=== PATIENT | male | born 1975 | race Two or more races ===

== ENCOUNTER 2020-02-22 12:46 | Inpatient (IN) | payer SELFPAY ==
[~2020-02-22] VITALS: Ht 185.4 cm; Wt 164.9 kg
[2020-02-22 13:31] LABS: Basophils # (auto) 0.1 10 ^3/uL (0-0.2); Basophils % (auto) 0.4 % (0.0-2.0); Eosinophils # (auto) 0.3 10 ^3/uL (0-0.8); Eosinophils % (auto) 2.5 % (0.0-7.0); Hematocrit 32.9 % (41.0-53.0); Hemoglobin 10.7 g/dL (13.5-17.5); Lymphocytes # (auto) 0.8 10 ^3/uL (0.4-5.4); Mean Corpuscular Hemoglobin 28.1 pg (28.0-32.0); Mean Corpuscular Hgb Conc. 32.5 g/dL (32.0-36.0); Mean Corpuscular Volume 86.4 fL (80.0-100.0); Monocytes # (auto) 0.6 10 ^3/uL (0-1.3); Monocytes % (auto) 5.3 % (0.0-12.0); Neutrophils # (auto) 9.9 10 ^3/uL (1.6-8.6); Neutrophils % (auto) 84.8 % (37.0-80.0); Platelet Count (auto) 282 10^3/uL (140-450); Red Blood Cells 3.81 10^6/uL (4.5-5.90); White Blood Cell 11.7 10^3/uL (4.4-10.8)
[2020-02-22 14:00] LABS: INR 0.97 (0.9-1.15); Partial Thromboplastin Time 29.9 sec (23.0-31.2)
[2020-02-22 14:07] LABS: Albumin 3.3 g/dL (3.4-5.0); Calcium 7.3 mg/dL (8.5-10.1); Potassium 4.3 mmol/L (3.5-5.1)
[2020-02-22 14:13] LABS: BUN/Creatinine Ratio 10.8; Bilirubin, Total 0.8 mg/dL (0.2-1.0); Total Protein 7.8 g/dL (6.4-8.2)
[2020-02-22] MEDS ORDERED: hydrALAZINE HCL 20 MG/ML VL IV PRN (16:30)
[2020-02-22] MEDS ORDERED: MORPHINE SULF INJ 2 MG/ML SYRINGE 1ML IV PRN (16:30)
[2020-02-22] MEDS ORDERED: NITROGLYCERIN 0.4 MG SL TAB SL PRN (16:30)
[2020-02-22 17:07] LABS: Sodium Urine 54 mmol/L (40-220)
[2020-02-22 17:10] LABS: Creatinine, Urine 92 mg/dL (30.0-125.0)
[2020-02-22 17:16] LABS: Urine Bacteria FEW /hpf (None Seen); Urine Blood 1+ /uL (Negative); Urine Mucus FEW (None Seen); Urine Specific Gravity 1.014 (1.001-1.035); Urine WBC 2 /hpf (0 - 3)
[2020-02-22 17:20] LABS: Phosphorus 4.3 mg/dL (2.5-4.90)
[2020-02-22 17:30] LABS: CRP High Sensitivity 1.68 mg/dL (< 0.3)
--- NOTE | 2020-02-22 17:54 | NUR ---
Telemetry admit from ER RENATA KEMP admitted to Telemetry unit after SBAR received. Patient oriented to Yesenia Barraza, primary RN, unit, room, bed, and unit policies regarding patient care and visiting hours. Patient now on continuous telemetry monitoring, tele box # 9 and telemetry reading on arrival to unit is . weighed by bedscale and encouraged to call if they need something. All questions and concerns addressed, patient verbalized understanding. Note:
--- NOTE | 2020-02-22 18:14 | NUR ---
BLOOD PRESSURE SPOKE WITH YASSINE GAMINO FOR ORDERS REGARDING BLOOD PRESSURE.
[2020-02-22] MEDS ORDERED: CARV25TA55 PO (18:22)
[2020-02-22] MEDS ORDERED: LISI40TA11 PO (18:22)
[2020-02-22] MEDS ORDERED: AMLO10TA13 PO (18:22)
[2020-02-22] MEDS: FUROSEMIDE 40 MG/4 ML VIAL IV SCH (18:39)
[2020-02-22] MEDS: LABETALOL HCL 5 MG/ML 4ML SYRINGE IV PRN (18:40)
[2020-02-22 18:43] VITALS: BP 172/107
--- NOTE | 2020-02-22 19:30 | NUR ---
Opening Shift Note Assumed care of patient, awake and alert. No S/S of distress/SOB or pain. Patient is a Latvian speaker only. Instructed on POC and to call for assist PRN, will continue to monitor for changes Q1hr and PRN.
[2020-02-22 22:00] VITALS: BP 152/89
[2020-02-22] MEDS: CARVEDILOL 3.125 MG TAB PO SCH (22:00)
[2020-02-23 05:00] VITALS: BP_SYST 147; BP_SYST 150; BP_DIAS 100; BP_DIAS 91
--- NOTE | 2020-02-23 05:00 | NUR ---
Endorsed care and report given to Juan MERCER. No signs of distress after transferring patient to other unit.
[2020-02-23] MEDS: FUROSEMIDE 40 MG/4 ML VIAL IV SCH ×2 (05:08→18:42)
--- NOTE | 2020-02-23 05:10 | NUR ---
Opening Shift Note Assumed care of patient from Gordy RN, patient awake and alert. Oxygen saturation 93% on room air. Bed locked in lowest position, side rails up X2, call light within reach. No S/S of distress/SOB or pain. Instructed on POC and to call for assist PRN, will continue to monitor for changes Q1hr and PRN.
--- NOTE | 2020-02-23 05:40 | NUR ---
Tele box Telemetry box #9 sent off to icu, received tele box #40
--- NOTE | 2020-02-23 07:15 | NUR ---
Closing note Care endorsed to Kevin MRECER. Patient resting in bed locked in lowest position, side rails up X2, call light within reach. No signs of distress or SOB.
--- NOTE | 2020-02-23 07:30 | NUR ---
opening note assumed care of patient from NOC SYLVIE Martinez. Patient is AOx4 no s/s of distress or SOB noted. Bed is in lowest locked position, side rails up x2 and call light within reach. Updated patient on plan of care and patient verbalized understanding. Will continue to monitor q1hr and PRN.
[2020-02-23 08:04] LABS: Basophils # (auto) 0.1 10 ^3/uL (0-0.2); Basophils % (auto) 0.6 % (0.0-2.0); Eosinophils # (auto) 0.4 10 ^3/uL (0-0.8); Eosinophils % (auto) 3.3 % (0.0-7.0); Hematocrit 29.3 % (41.0-53.0); Hemoglobin 9.9 g/dL (13.5-17.5); Lymphocytes # (auto) 0.9 10 ^3/uL (0.4-5.4); Lymphocytes % (auto) 8.3 % (10.0-50.0); Mean Corpuscular Hgb Conc. 33.7 g/dL (32.0-36.0); Monocytes # (auto) 0.7 10 ^3/uL (0-1.3); Monocytes % (auto) 6.2 % (0.0-12.0); Neutrophils # (auto) 8.6 10 ^3/uL (1.6-8.6); Neutrophils % (auto) 81.6 % (37.0-80.0); Platelet Count (auto) 238 10^3/uL (140-450); Red Cell Distribution Width 15.5 % (11.8-14.3); White Blood Cell 10.6 10^3/uL (4.4-10.8)
[2020-02-23 08:25] LABS: Calcium 7.3 mg/dL (8.5-10.1)
[2020-02-23 08:28] LABS: BUN/Creatinine Ratio 10.4; Phosphorus 4.6 mg/dL (2.5-4.90); Uric Acid 8.3 mg/dL (3.5-7.2)
[2020-02-23 09:00] VITALS: BP 147/97
[2020-02-23] MEDS: AZITHROMYCIN 250 MG TAB PO SCH (09:22)
[2020-02-23] MEDS: PANTOPRAZOLE 40 MG TAB PO SCH (09:22)
[2020-02-23] MEDS: cefTRIAXone 1GM/50ML D5W 50 ML IV SCH (09:23)
[2020-02-23] MEDS: CARVEDILOL 3.125 MG TAB PO SCH (09:23)
--- NOTE | 2020-02-23 12:30 | NUR ---
PHYSICIAN ROUNDING Dr. Brink at bedside. MD updated patient on plan of care. No new orders received.
[2020-02-23 13:00] VITALS: BP 142/90
--- NOTE | 2020-02-23 13:15 | NUR ---
physician rounding Dr. Delvalle at bedside. MD updated patient on plan of care, patient verbalized understanding. New orders received, will follow thorough.
[2020-02-23] MEDS ORDERED: METOPROLOL TARTRATE 50 MG TAB PO ONE (13:30)
[2020-02-23] MEDS ORDERED: cloNIDine HCL 0.1 MG TAB PO PRN (13:30)
--- NOTE | 2020-02-23 13:33 | NUR ---
Received call from pharmacy Received call regarding if MD wants patient on Coreg or Lopressor. Will call Dr. Delvalle for clarification.
--- NOTE | 2020-02-23 13:35 | NUR ---
CALLED MD Called Dr. Delvalle, left message regarding pharmacy calcification. Awaiting call back.
--- NOTE | 2020-02-23 13:56 | NUR ---
received call back from . Received call back from Dr. Delvalle, updated MD regarding clarification of medications. Per MD D/c coreg. Will notify pharmacy.
--- NOTE | 2020-02-23 13:57 | NUR ---
notified pharmacy regarding medication, per MD D/C coreg.
--- NOTE | 2020-02-23 15:39 | NUR ---
SS consult due to pt having no insurance. Pt is here visiting from [place]. Pt lives with family there and is employed. Pt has been referred to [facility] but does not qualify for [facility] due to being [place] of state and over income. If pt has any discharge needs, will reassess for appropriate community resources to assist. [facility] has referred pt's case to the [facility] billing dept. Will continue to monitor and provide intervention as appropriate. Addendum: 02/23/20 at 1543 by COTY CHU Amended: Links added.
[2020-02-23 16:51] VITALS: BP 148/91
[2020-02-23] MEDS: LABETALOL HCL 5 MG/ML 4ML SYRINGE IV PRN (18:43)
--- NOTE | 2020-02-23 19:15 | NUR ---
End of shift note Endorsed care to NOC SYLVIE Goss. No s/s of distress or SOB noted.
--- NOTE | 2020-02-23 19:20 | NUR ---
OPENING SHIFT NOTE Assumed care of patient from Kevin MERCER, pt is ALOCx4 and currently on RA with no S/S of distress or SOB noted. Denies pain at this time. PIV to the left AC 20 gauge flushed with 10ml NS. Patient is ambulatory without assistance, POC discussed with patient and all questions answered. Bed in lowest position, locked and side rails up x2. Call light within reach and patient is encouraged to call for assistance as needed. Will continue to monitor for changes PRN.
[2020-02-23] MEDS: METOPROLOL TARTRATE 50 MG TAB PO SCH (21:50)
[2020-02-23 22:00] VITALS: BP 154/87
[2020-02-24 05:00] VITALS: BP 149/92
[2020-02-24] MEDS: FUROSEMIDE 40 MG/4 ML VIAL IV SCH ×2 (06:16→17:22)
[2020-02-24 06:32] LABS: Potassium 3.7 mmol/L (3.5-5.1)
[2020-02-24 06:36] LABS: BUN/Creatinine Ratio 10.3; Calcium 7.5 mg/dL (8.5-10.1)
--- NOTE | 2020-02-24 07:16 | NUR ---
End of shift note Endorsed care to day shift Kevin MERCER. No s/s of distress or SOB noted
--- NOTE | 2020-02-24 07:30 | NUR ---
opening note assumed care of patient from NOC RN. Patient is AOx4 no s/s of distress or SOB noted. Bed is in lowest locked position, side rails up x2 and call light within reach. Updated patient on plan of care and patient verbalized understanding. Will continue to monitor q1hr and PRN.
[2020-02-24 09:00] VITALS: BP 169/113
--- NOTE | 2020-02-24 09:35 | NUR ---
Physician rounding Dr. Delvalle at bedside, MD updated patient on plan of care. Patient verbalized understanding. No new orders received, will continue care.
[2020-02-24] MEDS: cefTRIAXone 1GM/50ML D5W 50 ML IV SCH (10:28)
[2020-02-24] MEDS: PANTOPRAZOLE 40 MG TAB PO SCH (10:28)
[2020-02-24] MEDS: AZITHROMYCIN 250 MG TAB PO SCH (10:28)
[2020-02-24] MEDS: amLODIPine BESYLATE 5 MG TAB PO SCH (10:29)
[2020-02-24] MEDS: METOPROLOL TARTRATE 50 MG TAB PO SCH ×2 (10:29→21:35)
--- NOTE | 2020-02-24 10:33 | NUR ---
Patient assessment. patient noted to have nausea, patient requested emesis bag. Patient dry heaved and only spit up clear sputum. Will continue to monitor. Will notify MD for PRN nausea medication.
--- NOTE | 2020-02-24 11:00 | NUR ---
patient reassessment Patient stated "I do not have nausea at the moment, i have not thrown up either." Will continue to monitor.
--- NOTE | 2020-02-24 11:52 | NUR ---
called MD Called Dr. Delvalle regarding patient having nausea. Order received for PRN Zofran. Will follow through.
[2020-02-24] MEDS ORDERED: ONDANSETRON HCL 4 MG/2 ML VIAL IV PRN (12:00)
[2020-02-24 13:00] VITALS: BP 159/99
[2020-02-24 14:14] LABS: Protein, Urine 569.7 mg/dL (0.0-11.9)
--- NOTE | 2020-02-24 14:50 | NUR ---
Temperature reassessment Temp was noted at 99.0. Reassessment is now at 98.5. Will continue to monitor.
[2020-02-24 17:00] VITALS: BP 161/91
--- NOTE | 2020-02-24 17:30 | NUR ---
Cooling Measures applied. Patient currently has temp of 99.5 , cooling measures in place.
--- NOTE | 2020-02-24 19:12 | NUR ---
end of shift note endorsed care to NOC RN. No s/s of distress noted.
[2020-02-24 21:00] VITALS: BP 160/97
[2020-02-25 05:00] VITALS: BP 153/85
[2020-02-25] MEDS: FUROSEMIDE 40 MG/4 ML VIAL IV SCH ×2 (05:44→17:44)
--- NOTE | 2020-02-25 07:30 | NUR ---
End of shift note Endorsed care to day shift Citlali RN. No s/s of distress or SOB noted at this time.
--- NOTE | 2020-02-25 07:45 | NUR ---
Opening Shift Note Assumed care of patient, awake and alert. No S/S of distress/SOB or pain. Bed in lowest/locked position, bed rails up x2, call light within reach. Instructed on POC and to call for assist PRN. Will continue to monitor for changes Q1hr and PRN.
--- NOTE | 2020-02-25 08:10 | NUR ---
ROUNDS DR Princess HA AT BEDSIDE
--- NOTE | 2020-02-25 08:17 | NUR ---
PAGE PAGED DR BYERS RE: CONSULT FOR CHF. AWAITING RETURN CALL
--- NOTE | 2020-02-25 08:58 | NUR ---
RETURN MD CALL DR BYERS RETURNED CALL RE: PATIENT CONSULT. PER DR BYERS; PATIENT OK TO DISCHARGE. WILL NOTIFY DR Princess HA. WILL CONTINUE TO MONITOR
[2020-02-25 09:00] VITALS: BP 151/88
--- NOTE | 2020-02-25 09:40 | NUR ---
MD ROUNDS DR NEVAREZ AT BEDSIDE
[2020-02-25] MEDS: cefTRIAXone 1GM/50ML D5W 50 ML IV SCH (09:45)
[2020-02-25] MEDS: METOPROLOL TARTRATE 50 MG TAB PO SCH (09:45)
[2020-02-25] MEDS: AZITHROMYCIN 250 MG TAB PO SCH (09:45)
[2020-02-25] MEDS: PANTOPRAZOLE 40 MG TAB PO SCH (09:45)
[2020-02-25] MEDS: amLODIPine BESYLATE 5 MG TAB PO SCH (09:46)
[2020-02-25] MEDS ORDERED: ISOSORBIDE MONONITRATE ER 60 MG TAB PO SCH (12:07)
[2020-02-25 13:00] VITALS: BP 144/85
[2020-02-25 13:52] VITALS: BP 144/85
[2020-02-25 17:00] VITALS: BP 143/82
--- NOTE | 2020-02-25 18:42 | NUR ---
Discharge instructions given as ordered. Encourage to follow up with PMD as instructed. All questions and concerns addressed. Patient verbalized understanding. IV removed with catheter intact, pressure dressing applied. Telemetry unit returned to ICU. Patient taken to vehicle via wheelchair with all personal belongings, accompanied by staff. No distress noted at time of departure.
== END 2020-02-25 18:30 | disposition home or self-care (01) | DRG 291 ==
LOC: ER 12:46 → EDBD 12:46 → TELE-EAST 12:47 → TELE-CENTR 02-23 04:40
PROVIDERS: ADMIT Nurse Practitioner Acute Care; ATTEND Family Medicine
DX: I13.2 Hypertensive heart and chronic kidney disease with heart failure and with stage 5 chronic kidney disease, or end stage renal disease (principal); J18.9 Pneumonia, unspecified organism; N17.0 Acute kidney failure with tubular necrosis; I50.43 Acute on chronic combined systolic (congestive) and diastolic (congestive) heart failure; N18.5 Chronic kidney disease, stage 5; Z68.42 Body mass index [BMI] 45.0-49.9, adult; D63.8 Anemia in other chronic diseases classified elsewhere; E66.01 Morbid (severe) obesity due to excess calories; E88.09 Other disorders of plasma-protein metabolism, not elsewhere classified; F17.210 Nicotine dependence, cigarettes, uncomplicated; Z82.49 Family history of ischemic heart disease and other diseases of the circulatory system; F41.9 Anxiety disorder, unspecified; Z03.818 Encounter for observation for suspected exposure to other biological agents ruled out; R79.1 Abnormal coagulation profile; N28.1 Cyst of kidney, acquired; G47.33 Obstructive sleep apnea (adult) (pediatric); J40 Bronchitis, not specified as acute or chronic
CPT/HCPCS: 36415; 71045; 76775; 80048; 80053; 80061; 81001; 82570; 82728; 83036; 83605; 83615; 83735; 83880; 84100; 84156; 84300; 84484; 84550; 85025; 85379; 85610; 85730; 86141; 87040; 87426; 93005; 93306; 93970; 96365; 96375; G0378; J0696; J3490